=== PATIENT | male | born 1995 | race Caucasian/White ===

== ENCOUNTER 2023-12-05 05:29 | Emergency (ER) | payer OTHER ==
--- NOTE | 2023-12-05 05:43 | ED Physician Documentation ---
PD HPI ABD PAIN - Stated complaint Stated Complaint: ABD PX, N/V - Chief complaint Chief Complaint: Abd Pain - History obtained from History obtained from: Patient - Additional information Additional information: HPI from patient. Patient complains of abdominal pain, epigastric and left upper quadrant, rapid onset approximately 4 AM this morning awakening him from sleep. He denies nausea, vomiting. He says he has had similar episodes in the past; he estimates the last episode was within the past several months. He indicates that, at that time, he was evaluated in an emergency department somewhere in [place] and that the workup included CT A/P with findings of "stomach inflammation" (per patient). He says he followed up with a clinical team manager, they performed upper endoscopy and this confirmed "stomach inflammation". Asked patient if he is taking any acid-blocking medications, and he indicates "I lost them when I moved" (patient says he moved here from [place] approximately 1 month ago). PD PAST MEDICAL HISTORY - Past Medical History Past Medical History: No - Past Surgical History Past Surgical History: Yes - Present Medications Home Medications: Ambulatory Orders Medication Instructions Recorded Confirmed HYDROcod/ACETAM 5/325 [[place] 5/325] 1 tablet PO Q6H PRN #10 tablet 12/05/23 Lidocaine Viscous 2% [Xylocaine 5 ml MM Q4H PRN #100 ml 12/05/23 Viscous 2%] Omeprazole 40 mg PO DAILY #14 cap 12/05/23 - Allergies Allergies/Adverse Reactions: Allergies Allergy/AdvReac Type Severity Reaction Status Date / Time No Known Drug Allergies Allergy Verified 12/05/23 05:35 - Social History Does the pt smoke?: No Smoking Status: Never smoker Does the pt drink ETOH?: No Does the pt have substance abuse?: No PD ED PE NORMAL - Vitals Vital signs reviewed: Yes - General General: Alert and oriented X 3, Well developed/nourished, Other (appears to be in painful distress. no eye contact (keeps eyes closed throughout H+P), tachypneic) - HEENT HEENT: Moist mucous membranes - Neck Neck: Supple, no meningeal sign - Cardiac Cardiac: RRR, No murmur - Respiratory Respiratory: No respiratory distress, Clear bilaterally - Abdomen Abdomen: Soft, Non distended, Other (mild TTP epigastrium and LUQ without rebound or guarding) - Derm Derm: Normal color, Warm and dry Results - Vitals Vitals: Vital Signs - 24 hr 12/05/23 12/05/23 12/05/23 05:35 06:15 06:30 Temperature 36.2 C L Heart Rate 74 55 L 64 Respiratory 30 H 18 16 Rate Blood Pressure 170/108 H 138/78 H 149/80 H O2 Saturation 100 98 99 Oxygen O2 Source Room air - Labs Labs: Laboratory Tests 12/05/23 12/05/23 05:53 05:53 WBC 11.4 H RBC 5.04 Hgb 14.6 Hct 43.5 MCV 86.3 MCH 29.0 MCHC 33.6 RDW 12.7 Plt Count 315 MPV 10.1 Neut # (Auto) 5.4 Lymph # (Auto) 4.9 H [place] # (Auto) 0.8 Eos # (Auto) 0.2 Baso # (Auto) 0.1 Absolute Nucleated RBC 0.00 Nucleated RBC % 0.0 Sodium 140 Potassium 3.6 Chloride 107 Carbon Dioxide 22 Anion Gap 11.0 BUN 27 H Creatinine 0.9 Estimated GFR (MDRD) 102 Glucose 109 H Calcium 10.2 Total Bilirubin 0.5 AST 21 ALT 42 Alkaline Phosphatase 74 Total Protein 7.8 Albumin 5.0 Globulin 2.8 Albumin/Globulin Ratio 1.8 Lipase 36 PD Medical Decision Making - ED course Complexity details: reviewed results, re-evaluated patient, considered differential, d/w patient ED course: No concerning nor diagnostic findings on tonight's blood tests. Mild leukocytosis noted (WBC 11.4), elevated BUN (27) with normal creatinine. Patient is given 40 mg Protonix IV, 1 mg IV Dilaudid. On reevaluation, the patient is in NAD and reports significant improvement. He is no longer hyperventilating. On reexamination of his abdomen, he is nontender in all four quadrants. He is then given 30ml maalox with 5 ml viscous lidocaine; he reports further improvement with this intervention. As noted above in HPI, patient indicates he has had the same symptoms episodically in the past, has had workup including CT A/P with findings of "stomach inflammation" (per patient, presumably gastritis). Given the unremarkable blood tests and significant improvement with a single dose of narcotic/opiate (Dilaudid) along with the other medications as noted in this summary, emergent imaging is not indicated at this time. Gastritis is a likely etiology. I have electronically submitted prescriptions for Protonix, viscous lidocaine/Xylocaine, and a short course of Vicodin to the [facility] pharmacy in [place]. Return precautions are reviewed. I instructed patient to contact his primary care provider when the office opens later today to arrange for the next available appointment for follow-up/reevaluation purposes. Departure - Departure Disposition: 01 Home, Self Care Clinical Impression: Abdominal pain Condition: Good Instructions: ED Abdominal Pain Excl Appendx Male Follow-Up: LILIANA Kidd [Provider Group] Prescriptions: HYDROcod/ACETAM 5/325 [[place] 5/325] 1 tablet PO Q6H PRN #10 tablet PRN Reason: Pain Omeprazole 40 mg PO DAILY #14 cap Lidocaine Viscous 2% [Xylocaine Viscous 2%] 5 ml MM Q4H PRN #100 ml PRN Reason: Abdominal Pain Comments: There were no concerning nor diagnostic findings on tonight's blood test. Based on the location of your pain, and that you have had similar episodes in the past that were attributed to gastritis, I suspect a recurrence of your gastritis is the cause of your symptoms. I have electronically submitted prescriptions for omeprazole (acid-blocking medication), Xylocaine (oral numbing agent), and vicodin (opiate/narcotic pain medication) to the [facility] in [place]. Contact your primary care provider this morning when the office opens to arrange for the next available appointment for follow-up/reevaluation. I am prescribing a short course of narcotic pain medication for you. These are potentially dangerous and addictive medications that should be used carefully. These medications may constipate you. Take an [id number] stool softener (docusate) twice daily with plenty of water while taking these medications. If you go 24 hours without a bowel movement, take [id number] miralax, per package instructions. Do not drink or drive while taking these medications. If you received narcotic or sedating medications while in the emergency department, do not drive for 24 hours. Store this medication in a safe, secure place and out of reach of children. It is a violation of federal law to give or sell this medication to another person or to use in a manner other than prescribed. The ED will not refill narcotic prescriptions, including prescriptions lost or stolen. To dispose of unwanted medications: 1. [facility] at [address] in [place] has a medication drop box. They accept prescription medications (in pill form) Thursday through Thursday 9:00 a.m. to 5:00 p.m. 2. [facility] accepts prescription medications (in pill form only) for disposal year round. Call for more information. 3. Contact the [facility] for the next [facility] sponsored prescription drug collection event. , [phone], or [phone]; Forms: PCP List
[2023-12-05] MEDS: HYDROmorphone 1 MG/ML CARPUJECT IVP STA (06:06)
[2023-12-05 06:08] LABS: BASOPHILS # (AUTO) 0.1 10^3/uL (0.0-0.1); BASOPHILS % (AUTO) 0.5 %; EOSINOPHILS # (AUTO) 0.2 10^3/uL (0.0-0.7); HCT - HEMATOCRIT 43.5 % (42.0-52.0); HGB - HEMOGLOBIN 14.6 g/dL (14.0-18.0); LYMPHOCYTES # (AUTO) 4.9 10^3/uL (1.5-3.5); LYMPHOCYTES % (AUTO) 42.8 %; MEAN CORPUSCULAR HGB CONC 33.6 g/dL (32.0-36.0); MEAN CORPUSCULAR VOLUME 86.3 fL (80.0-94.0); MEAN PLATELET VOLUME 10.1 fL (7.4-11.4); MONOCYTES # (AUTO) 0.8 10^3/uL (0.0-1.0); MONOCYTES % (AUTO) 7.2 %; NEUTROPHILS # (AUTO) 5.4 10^3/uL (1.5-6.6); NEUTROPHILS % (AUTO) 47.1 %; PLT - PLATELET COUNT 315 10^3/uL (130-450); RED BLOOD COUNT 5.04 10^6/uL (4.70-6.10); RED CELL DISTRIBUTION WIDTH 12.7 % (12.0-15.0); WHITE BLOOD COUNT 11.4 x10^3/uL (4.8-10.8)
[2023-12-05] MEDS: PANTOPRAZOLE 40 MG VIAL IVP STA (06:09)
[2023-12-05 06:21] LABS: ALBUMIN/GLOBULIN RATIO 1.8 (1.0-2.2); BILIRUBIN,TOTAL 0.5 mg/dL (0.2-1.0); CALCIUM 10.2 mg/dL (8.5-10.3); CREATININE 0.9 mg/dL (0.6-1.3); POTASSIUM 3.6 mmol/L (3.5-4.5); TOTAL PROTEIN 7.8 g/dL (6.4-8.9)
[2023-12-05] MEDS: LIDOCAINE VISCOUS 2% 15 ML UDC MM STA (06:58)
[2023-12-05] MEDS: MAG HYDROX/AL HYDROX/SIMETH 30 ML UDC PO STA (06:58)
[2023-12-05 07:23] LABS: BILIRUBIN,URINE NEGATIVE (NEGATIVE); GLUCOSE, URINE (UA) NEGATIVE (NEGATIVE); KETONES,URINE (UA) NEGATIVE (NEGATIVE); LEUKOCYTE ESTERASE, URINE NEGATIVE (NEGATIVE); NITRITE,URINE NEGATIVE (NEGATIVE); OCCULT BLOOD,URINE NEGATIVE (NEGATIVE); PROTEIN,URINE NEGATIVE (NEGATIVE); UROBILINOGEN,URINE 1 (NORMAL) E.U./dL (NORMAL)
[2023-12-05 07:29] LABS: CLARITY,URINE CLEAR (CLEAR)
[2023-12-05 07:36] VITALS: BP 122/80; O2SAT 100
== END 2023-12-05 07:30 | disposition home or self-care (01) ==
LOC: ED 05:29
DX: R10.13 Epigastric pain (principal); R10.12 Left upper quadrant pain
CPT/HCPCS: 36415; 80053; 81003; 83690; 85025; 96374; 96375; 99283; A9270; J1170; 81001; 87086

== ENCOUNTER 2023-12-11 05:34 | Emergency (ER) | payer OTHER ==
--- NOTE | 2023-12-11 06:28 | ED Physician Documentation ---
History of Present Illness - Stated complaint Stated Complaint: ABD PX/NAUSEA - Chief complaint Chief Complaint: Abd Pain - History obtained from History obtained from: Patient, Family (he) - Additonal information Additional information: 28yM with pmh gastritis found on endoscopy last year p/w epigastric pain waking him from sleep this morning. +nausea no vomiting, fever, diarrhea, urinary sx. denies psh. PD PAST MEDICAL HISTORY - Past Surgical History Past Surgical History: Yes - Present Medications Home Medications: Ambulatory Orders Medication Instructions Recorded Confirmed HYDROcod/ACETAM 5/325 [[place] 5/325] 1 tablet PO Q6H PRN #10 tablet 12/05/23 Lidocaine Viscous 2% [Xylocaine 5 ml MM Q4H PRN #100 ml 12/05/23 Viscous 2%] Omeprazole 40 mg PO DAILY #14 cap 12/05/23 Pantoprazole Sodium [Protonix] 40 mg PO QDAC #30 tab 12/11/23 - Allergies Allergies/Adverse Reactions: Allergies Allergy/AdvReac Type Severity Reaction Status Date / Time No Known Drug Allergies Allergy Verified 12/11/23 06:10 - Social History Does the pt smoke?: No Smoking Status: Never smoker Does the pt drink ETOH?: No Does the pt have substance abuse?: No PD ED PE NORMAL - Vitals Vital signs reviewed: Yes - General General: Alert and oriented X 3, Well developed/nourished, Other (hyperventilating, curled up on stretcher, shaking) - HEENT HEENT: Atraumatic, PERRL, EOMI, Moist mucous membranes, Pharynx benign - Neck Neck: Supple, no meningeal sign - Cardiac Cardiac: RRR - Respiratory Respiratory: No respiratory distress, Clear bilaterally - Abdomen Abdomen: Non tender, Non distended - Derm Derm: Normal color, Warm and dry - Neuro Neuro: No motor deficit, No sensory deficit Results - Vitals Vitals: Vital Signs - 24 hr 12/11/23 06:11 Temperature 36.6 C Heart Rate 79 Respiratory 20 Rate Blood Pressure 149/100 H O2 Saturation 100 Oxygen O2 Source Room air - Labs Labs: Laboratory Tests 12/11/23 12/11/23 06:35 06:35 WBC 8.8 RBC 4.92 Hgb 14.4 Hct 42.9 MCV 87.2 MCH 29.3 MCHC 33.6 RDW 12.6 Plt Count 300 MPV 10.0 Neut # (Auto) 4.5 Lymph # (Auto) 3.3 [place] # (Auto) 0.7 Eos # (Auto) 0.3 Baso # (Auto) 0.1 Absolute Nucleated RBC 0.00 Nucleated RBC % 0.0 Sodium 138 Potassium 4.0 Chloride 106 Carbon Dioxide 26 Anion Gap 6.0 BUN 20 Creatinine 0.9 Estimated GFR (MDRD) 102 Glucose 78 Calcium 10.2 Total Bilirubin 0.6 AST 24 ALT 50 Alkaline Phosphatase 68 Total Protein 7.5 Albumin 4.9 Globulin 2.6 Albumin/Globulin Ratio 1.9 Lipase 29 PD Medical Decision Making - ED course ED course: 28yM p/w abdominal pain, likely gastritis flare. cbc, abdominal panel ordered as well as pain meds and GI cocktail along with IV zofran. Feeling better with benign labs. Departure - Departure Disposition: 01 Home, Self Care Clinical Impression: Abdominal pain, Nausea Condition: Stable Instructions: Abdominal Pain, ED Gastritis Follow-Up: Penny Tesfaye MD [Physician No Access] - Prescriptions: Pantoprazole Sodium [Protonix] 40 mg PO QDAC #30 tab Comments: You were seen in the emergency department for stomach pain. Prescription sent to your pharmacy. Please follow-up with GI and return to the emergency department if you have any new or worsening symptoms or other concerns. Forms: PCP List
[2023-12-11 06:38] LABS: BASOPHILS # (AUTO) 0.1 10^3/uL (0.0-0.1); BASOPHILS % (AUTO) 0.6 %; EOSINOPHILS # (AUTO) 0.3 10^3/uL (0.0-0.7); EOSINOPHILS % (AUTO) 2.8 %; HCT - HEMATOCRIT 42.9 % (42.0-52.0); HGB - HEMOGLOBIN 14.4 g/dL (14.0-18.0); LYMPHOCYTES # (AUTO) 3.3 10^3/uL (1.5-3.5); LYMPHOCYTES % (AUTO) 37.5 %; MEAN CORPUSCULAR HEMOGLOBIN 29.3 pg (27.0-31.0); MEAN CORPUSCULAR HGB CONC 33.6 g/dL (32.0-36.0); MEAN CORPUSCULAR VOLUME 87.2 fL (80.0-94.0); MONOCYTES # (AUTO) 0.7 10^3/uL (0.0-1.0); MONOCYTES % (AUTO) 8.4 %; NEUTROPHILS # (AUTO) 4.5 10^3/uL (1.5-6.6); NEUTROPHILS % (AUTO) 50.5 %; PLT - PLATELET COUNT 300 10^3/uL (130-450); RED BLOOD COUNT 4.92 10^6/uL (4.70-6.10); RED CELL DISTRIBUTION WIDTH 12.6 % (12.0-15.0); WHITE BLOOD COUNT 8.8 x10^3/uL (4.8-10.8)
[2023-12-11] MEDS: ONDANSETRON 4 MG/2 ML VIAL IVP STA (06:48)
[2023-12-11] MEDS: HYDROmorphone 1 MG/ML CARPUJECT IVP STA (06:48)
[2023-12-11] MEDS: MAG HYDROX/AL HYDROX/SIMETH 30 ML UDC PO STA (06:48)
[2023-12-11] MEDS: FAMOTIDINE 20 MG/2 ML VIAL IVP STA (06:48)
[2023-12-11] MEDS: LIDOCAINE VISCOUS 2% 15 ML UDC MM STA (06:48)
[2023-12-11] MEDS: SODIUM CHLORIDE 0.9% 1,000 ML IV STA (06:49)
[2023-12-11] MEDS: diphenhydrAMINE ELIXIR 25 MG/10 ML UDC PO STA (06:49)
[2023-12-11 06:52] LABS: ALBUMIN 4.9 g/dL (3.2-5.5); ALBUMIN/GLOBULIN RATIO 1.9 (1.0-2.2); BILIRUBIN,TOTAL 0.6 mg/dL (0.2-1.0); CALCIUM 10.2 mg/dL (8.5-10.3); CREATININE 0.9 mg/dL (0.6-1.3); TOTAL PROTEIN 7.5 g/dL (6.4-8.9)
[2023-12-11 07:37] VITALS: BP 128/84; O2SAT 99
== END 2023-12-11 07:36 | disposition home or self-care (01) ==
LOC: ED 05:34
DX: R10.13 Epigastric pain (principal); R11.0 Nausea
CPT/HCPCS: 36415; 80053; 83690; 85025; 96374; 99283; 99284; A9270; J1170